=== PATIENT | male | born 1965 | race Caucasian/White ===

== ENCOUNTER 2018-06-24 09:16 | Day surgery (SDC) | payer OTHER ==
[2018-06-24] MEDS ORDERED: ASPIRIN EC 325 MG TAB PO ONE ×2 (09:19→09:21)
[2018-06-24] MEDS ORDERED: NS 1,000 ML IV ONE (09:19)
[2018-06-24] MEDS ORDERED: DIAZEPAM 5 MG TAB PO ONE (09:19)
[2018-06-24] MEDS ORDERED: diphenhydrAMINE 25 MG CAP PO ONE ×2 (09:19→09:21)
[2018-06-24] MEDS ORDERED: FAMOTIDINE 20 MG TAB PO ONE (09:19)
[2018-06-24] MEDS ORDERED: DIAZEPAM 5 MG TAB ONE (09:21)
[2018-06-24] MEDS ORDERED: FAMOTIDINE 20 MG TAB ONE (09:21)
[2018-06-24] MEDS ORDERED: fentaNYL 100 MCG/2 ML INJ ONE ×2 (09:25→10:37)
[2018-06-24] MEDS ORDERED: LIDOCAINE 1% 300 MG/30 ML SDV ONE (09:25)
[2018-06-24] MEDS ORDERED: IOPAMIDOL (ISOVUE-370) 150 ML BTL IV ONE (09:26)
[2018-06-24] MEDS ORDERED: MIDAZOLAM 2 MG/2 ML VIAL ONE ×2 (09:26→10:37)
[2018-06-24] MEDS ORDERED: ATROPINE SULFATE 1 MG/10 ML SYR ONE (09:32)
[2018-06-24] MEDS ORDERED: EPINEPHrine 1 MG/10 ML SYR IVP ONE (09:32)
[2018-06-24 09:51] LABS: PLATELET COUNT 244 10^3/uL (150-400)
[2018-06-24 10:06] LABS: PROTIME(PATIENT) 12.8 SEC (12.0-15.0)
--- NOTE | 2018-06-24 10:39 | PDPROPOC ---
Sedation Plan of Care Sedation Plan of Care: vital signs stable, mental status noted, patient educated of risks, benefits, alternatives, patient can tolerate sedation ASA Classification: ASA 2 Planned drugs: fentanyl, midazolam Mallampati Score: Class 2 Mallampati Reference Image: Patient passed 3-3-2 rule?: Yes
--- NOTE | 2018-06-24 10:39 | PDHPUP ---
History & Physical Update H&P update statement: This history and physical update is based on an assessment of the patient which was completed after admission or registration (within 24 hours), but prior to the surgery/procedure. H&P update: H&P reviewed & patient examined, no change in patient's condition since H&P completed
--- NOTE | 2018-06-24 12:28 | CPIP ---
[f rep st] INVASIVE CARDIAC PROCEDURE DATE OF PROCEDURE: 06/24/2018 PROCEDURE: 1. Coronary angiography. 2. Left ventriculography. INDICATION: Crescendo dyspnea on exertion concerning for an anginal equivalent in a diabetic patient . ACCESS: Patient was prepped and draped in sterile fashion. 1% lidocaine was used to anesthetize the right inguinal region. A 6-Faroese introducer sheath was placed selectively in the right common femo ral artery via modified Seldinger technique. CORONARY ANGIOGRAPHY: A 6-Faroese JL4 was advanced to left main coronary artery and images obtained. The left main coronary artery bifurcated into an LAD and circumflex coronary arteries. The left bernadine n coronary artery appeared normal. The left anterior descending coronary artery gave rise to 2 promi nent diagonal branches. The left anterior descending coronary artery and its complement of diagonal branches appeared normal. The circumflex coronary artery is a large vessel, but was nondominant. Th e circumflex coronary artery gave rise to 1 large branching OM artery, as well as several small poste rior lateral branches. The circumflex coronary artery and its OM branches appeared normal. A 6-Faroese JR4 was advanced to the right coronary artery. It did not engage the right coronary arter y well and was exchanged for a 6-Faroese no-torque right catheter. The 6-Faroese no-torque right melvi ter was advanced to the right coronary artery and images obtained. The right coronary artery is calixto nant. The right coronary artery had mild luminal irregularities in the proximal vessel, but was free of any significant disease. LEFT VENTRICULOGRAPHY: A 6-Faroese pigtail catheter was advanced in the left ventricle and images obt ained. Left ventricle was normal size and had normal systolic function. Estimated ejection fraction was 60%. Left ventricular end-diastolic pressure was 14 mmHg. COMPLICATIONS: None. CONCLUSIONS: 1. Minimal coronary artery disease. 2. Normal left ventricular systolic function. 3. Plan is for medical management. /[id number]/MODL
== END 2018-06-24 14:55 | disposition home or self-care (01) ==
LOC: FCATH 09:16
PROVIDERS: ATTEND Internal Medicine Cardiovascular Disease
PROC: 4A023N6 Measurement of Cardiac Sampling and Pressure, Right Heart, Percutaneous Approach (ICD-10-PCS; principal; 2018-06-24)
PROC: B2151ZZ Fluoroscopy of Left Heart using Low Osmolar Contrast (ICD-10-PCS; principal; 2018-06-24)
PROC: B2111ZZ Fluoroscopy of Multiple Coronary Arteries using Low Osmolar Contrast (ICD-10-PCS; principal; 2018-06-24)
DX: R06.09 Other forms of dyspnea (principal); I25.10 Atherosclerotic heart disease of native coronary artery without angina pectoris; I10 Essential (primary) hypertension; E78.5 Hyperlipidemia, unspecified; E10.9 Type 1 diabetes mellitus without complications; F32.9 Major depressive disorder, single episode, unspecified
CPT/HCPCS: C1760; J0461; J1644; J2250; J3010; Q9967